=== PATIENT | male | born 1990 | race Caucasian/White ===

== ENCOUNTER 2016-08-13 16:11 | Emergency (ER) | payer OTHER ==
[2016-08-13] MEDS ORDERED: DIPH,PERTUS(ACELL)TETVAC-LF 0.5 ML VIAL IM ONE (17:13)
[2016-08-13] MEDS ORDERED: AMOXIC-POT CLAV 875-125MG 1 EACH TAB PO STA (17:13)
--- NOTE | 2016-08-13 17:19 | ED ---
Animal Bite HPI - General Chief Complaint: Animal Bite Stated Complaint: Dog bite/Hand Time Seen by Provider: 08/13/16 17:06 Source: patient, RN notes reviewed Mode of arrival: ambulatory Limitations: no limitations - History of Present Illness Initial Comments: Patient is a 25-year-old male presents to the emergency room for evaluation of dog bite. Patient states he was playing with his dog and his dog accidentally bit his hand. Patient states his large laceration on the palm of his hand. Patient denies any other injuries. Patient states she's not shortness last tetanus vaccine was. Patient denies any numbness or tingling in his fingers. Patient states he still has full range of motion of his fingers. - Related Data Previous Rx's Medication Instructions Recorded Amoxicillin/Potassium Clav 1 each PO Q12HR #20 tab 08/13/16 [Augmentin 875-125 Tablet] Allergies Allergy/AdvReac Type Severity Reaction Status Date / Time No Known Allergies Allergy Verified 08/13/16 17:37 Review of Systems ROS Statement: Those systems with pertinent positive or pertinent negative responses have been documented in the HPI. ROS Other: All systems not noted in ROS Statement are negative. Past Medical History Past Medical History: No Reported History History of Any Multi-Drug Resistant Organisms: None Reported Past Surgical History: No Surgical Hx Reported Past Psychological History: No Psychological Hx Reported Smoking Status: Current every day smoker Past Alcohol Use History: Occasional Past Drug Use History: Marijuana General Exam - General Exam Comments Initial Comments: Sitting in exam room, no acute distress. Limitations: no limitations General appearance: alert, in no apparent distress Head exam: Present: atraumatic, normocephalic, normal inspection Eye exam: Present: normal appearance ENT exam: Present: normal exam Neck exam: Present: normal inspection Respiratory exam: Absent: respiratory distress Right Hand Wrist exam: Present: full ROM, laceration (3 cm open laceration over the middle of thenar eminence of the right hand from dog bite) Neuro motor exam: Present: wrist extension intact, thumb opposition intact, thumb IP flexion intact, thumb adduction intact, fingers 2-5 abduction intact Vascular: Present: normal capillary refill (Capillary refill less than 2 seconds ), radial pulse (2+), ulnar pulse (2+) Back exam: Present: normal inspection Neurological exam: Present: alert, oriented X3, CN II-XII intact, normal gait Psychiatric exam: Present: normal affect, normal mood Skin exam: Present: warm, dry. Absent: rash Course Vital Signs 08/13/16 08/13/16 16:13 18:22 Temperature 98.1 F 97.9 F Pulse Rate 124 H 100 Respiratory 20 16 Rate Blood Pressure 160/88 160/90 O2 Sat by Pulse 99 97 Oximetry Procedures - Laceration Laceration #1 Consent Obtained: verbal consent Indication: laceration Site: other (right hand) Size (cm): 3 Description: irregular Depth: simple, single layer Anesthetic Used: lidocaine 1% Anesthesia Technique: local infiltration Amount (mls): 5 Pre-repair: wound explored, irrigated extensively Type of Sutures: nylon Size of Sutures: 5-0 Number of Sutures: 2 Technique: horizontal mattress Patient Tolerated Procedure: well, no complications Medical Decision Making - Medical Decision Making Patient is a 25-year-old male presents to the emergency room for evaluation of dog bite over right hand. Patient had a 3 cm open laceration from dog bite. Wound was thoroughly irrigated with 500 mL of sterile water. Laceration was loosely closed with 2 horizontal mattress sutures. Thoroughly explained to patient the increased risk of infection. Patient will be started on Augmentin. Patient updated on tetanus vaccine. Advised patient to followup with primary care provider for reevaluation of the wound in 24 hours. Advised patient to return to the emergency room for any signs of infection. Patient states he understands everything that was discussed with him. Case discussed with Dr. Kaur. Disposition Clinical Impression: Dog bite Disposition: HOME SELF-CARE Condition: Good Instructions: Animal Bite (ED), Care For Your Stitches (ED) Additional Instructions: Keep suture area clean and dry. Please follow up with primary care provider in 24-48 hours for reevaluation of wound. Please return for redness, swelling or pus drainage. Take antibiotics as directed. If any new symptom arises or symptoms worsen, return to ER as soon as possible. Prescriptions: Amoxicillin/Potassium Clav [Augmentin 875-125 Tablet] 1 each PO Q12HR #20 tab Referrals: Nathaly Vazquez MD [REFERRING] - 1-2 days Time of Disposition: 18:12
[2016-08-13 18:24] VITALS: BP 160/90; PULSE 100; RESP 16; TEMP 97.9
== END 2016-08-13 18:24 | disposition home or self-care (01) ==
LOC: EC 16:11
DX: S61.451A Open bite of right hand, initial encounter (principal); Z23 Encounter for immunization; F17.200 Nicotine dependence, unspecified, uncomplicated; W54.0XXA Bitten by dog, initial encounter; Y92.009 Unspecified place in unspecified non-institutional (private) residence as the place of occurrence of the external cause
CPT/HCPCS: 12002; 90471; 90715; 99283

== ENCOUNTER 2019-10-18 07:06 | Emergency (ER) | payer OTHER ==
[2019-10-18 07:14] VITALS: BP 162/91; PULSE 100; RESP 18; TEMP 97.5
--- NOTE | 2019-10-18 07:25 | ED ---
Upper Extremity HPI - General Chief Complaint: Extremity Injury, Upper Stated Complaint: LT hand injury Time Seen by Provider: 10/18/19 07:15 Source: patient, RN notes reviewed Mode of arrival: ambulatory Limitations: no limitations - History of Present Illness Initial Comments: 28-year-old male presents emergency from chief complaint left hand pain and swelling. 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 His last tetanus was one year ago. Patient states pain and swelling has increased. Patient states her some redness. He has no pain in his forearm, axilla. Patient denies any fevers or chills. Patient states that he did wash it off those hands are very dirty at this time. - Related Data Previous Rx's Medication Instructions Recorded Amoxicillin/Potassium Clav 1 each PO Q12HR #20 tab 08/13/16 [Augmentin 875-125 Tablet] Clindamycin HCl 300 mg PO Q6HR #40 cap 10/18/19 Ibuprofen [Motrin] 600 mg PO Q8HR PRN #20 tab 10/18/19 Allergies Allergy/AdvReac Type Severity Reaction Status Date / Time No Known Allergies Allergy Verified 10/18/19 07:14 Review of Systems ROS Statement: Those systems with pertinent positive or pertinent negative responses have been documented in the HPI. ROS Other: All systems not noted in ROS Statement are negative. Past Medical History Past Medical History: No Reported History History of Any Multi-Drug Resistant Organisms: None Reported Past Surgical History: No Surgical Hx Reported Past Psychological History: No Psychological Hx Reported Smoking Status: Current every day smoker Past Alcohol Use History: Occasional Past Drug Use History: Marijuana, Prescription Drug Abuse General Exam Limitations: no limitations General appearance: alert, in no apparent distress Head exam: Present: atraumatic, normocephalic, normal inspection Eye exam: Present: normal appearance, PERRL, EOMI. Absent: scleral icterus, conjunctival injection, periorbital swelling Respiratory exam: Present: normal lung sounds bilaterally. Absent: respiratory distress, wheezes, rales, rhonchi, stridor Cardiovascular Exam: Present: regular rate, normal rhythm, normal heart sounds. Absent: systolic murmur, diastolic murmur, rubs, gallop, clicks Extremities exam: Present: other (Left hand there is a puncture wound noted to the palmar aspect and erythema, swelling on the dorsal aspect patient has full range of motion neurovascular intact Refill less than 2 seconds there is no erythema spreads vastly and no epitrochlear nodes or) Skin exam: Present: warm, dry, intact Course Vital Signs 10/18/19 07:12 Temperature 97.5 F L Pulse Rate 100 Respiratory 18 Rate Blood Pressure 162/91 O2 Sat by Pulse 99 Oximetry Medical Decision Making - Medical Decision Making 28-year-old male presents emergency department for left hand swelling, and in jury. There is no foreign bodies noted fracture. Patient has soft tissue infection related to puncture wound. Patient was given strict return parameters. Patient understands that he is return for any worsening or change symptoms. Patient was started on clindamycin at this time he is to thoroughly clean his hands. Disposition Clinical Impression: Cellulitis of left hand, Puncture wound of left hand Disposition: HOME SELF-CARE Condition: Stable Instructions (If sedation given, give patient instructions): Cellulitis (ED) Additional Instructions: Please return to the Emergency Department if symptoms worsen or any other concerns. Prescriptions: Clindamycin HCl 300 mg PO Q6HR #40 cap Ibuprofen [Motrin] 600 mg PO Q8HR PRN #20 tab PRN Reason: Pain Is patient prescribed a controlled substance at d/c from ED?: No Referrals: None,Stated [Primary Care Provider] - 1-2 days Time of Disposition: 07:43
--- NOTE | 2019-10-18 07:37 | XR ---
EXAMINATION TYPE: XR hand complete LT , 3 VIEWS DATE OF EXAM ORDERED: 10/18/2019 HISTORY: swelling, pain. COMPARISON: None. FINDINGS: There is swelling over the dorsum of the hand. No fracture, dislocation or other acute oss eous lesion is seen. IMPRESSION: NO ACUTE OSSEOUS LESION.
== END 2019-10-18 07:50 | disposition home or self-care (01) ==
LOC: EC 07:06
DX: S61.432A Puncture wound without foreign body of left hand, initial encounter (principal); L03.114 Cellulitis of left upper limb; F17.200 Nicotine dependence, unspecified, uncomplicated; W27.0XXA Contact with workbench tool, initial encounter; Y93.89 Activity, other specified; Y92.009 Unspecified place in unspecified non-institutional (private) residence as the place of occurrence of the external cause
CPT/HCPCS: 99283

== ENCOUNTER 2023-06-11 15:21 | Emergency (ER) | payer OTHER ==
[2023-06-11] MEDS ORDERED: FLUORESCEIN STRIPS 1 MG STRIP LEFT EYE ONE (16:18)
[2023-06-11] MEDS ORDERED: PROPARACAINE 0.5% OPHTH DROPS 15 ML BTL LEFT EYE STA (16:18)
[2023-06-11] MEDS ORDERED: ERYTHROMYCIN 5 MG/GM OPHTH OINT 1 GM TUBE LEFT EYE STA (17:03)
[2023-06-11] MEDS ORDERED: DIPH,PERTUS(ACELL)TETVAC-LF 0.5 ML VIAL IM ONE (17:03)
--- NOTE | 2023-06-11 17:08 | ED ---
General Adult HPI - General Chief complaint: Eye Problems Stated complaint: Left Eye irritation Time Seen by Provider: 06/11/23 16:27 Source: patient Mode of arrival: ambulatory Limitations: no limitations - History of Present Illness Initial comments: Dictation was produced using [employer] dictation software. please excuse any grammatical, word or spelling errors. Chief Complaint: 32-year-old male with left eye foreign body History of Present Illness: 32-year-old male with left eye foreign body. Patient states that 48 hours ago he was doing yard work when he felt something go into his eye. 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 Does not recall any pieces of metal in his eye then. Patient states that today his symptoms of left eye foreign body increasingly worsened. He states that he has watery eye, conjunctivitis along with photophobia. Patient unsure when his last tetanus was. The ROS documented in this emergency department record has been reviewed and confirmed by me. Those systems with pertinent positive or negative responses have been documented in the HPI. All other systems are other negative and/or noncontributory. - Related Data Previous Rx's Medication Instructions Recorded Amoxicillin/Potassium Clav 1 each PO Q12HR #20 tab 08/13/16 [Augmentin 875-125 Tablet] Ibuprofen [Motrin] 600 mg PO Q8HR PRN #20 tab 10/18/19 clindamycin HCL [Clindamycin HCl] 300 mg PO Q6HR #40 cap 10/18/19 Allergies Allergy/AdvReac Type Severity Reaction Status Date / Time No Known Allergies Allergy Verified 06/11/23 15:30 Review of Systems ROS Statement: Those systems with pertinent positive or pertinent negative responses have been documented in the HPI. ROS Other: All systems not noted in ROS Statement are negative. Past Medical History Past Medical History: No Reported History History of Any Multi-Drug Resistant Organisms: None Reported Past Surgical History: No Surgical Hx Reported Past Psychological History: No Psychological Hx Reported Smoking Status: Current every day smoker Past Alcohol Use History: Occasional Past Drug Use History: Marijuana, Prescription Drug Abuse General Exam - General Exam Comments Initial Comments: General: Well-appearing, nontoxic, no acute distress. Head: Normocephalic, atraumatic Eyes: Left eye conjunctivitis, small pinpoint what appears to be metal or stone right below the pupil, pupils round reactive to light. Sclera is injected ENT: Airway patent Chest: Nonlabored breathing Skin: No visual rash, normal skin tone Neuro: Alert and oriented 3 Musculoskeletal: No gross abnormalities Limitations: no limitations Course Vital Signs 06/11/23 15:29 Temperature 98.4 F Pulse Rate 89 Respiratory 20 Rate Blood Pressure 159/90 O2 Sat by Pulse 97 Oximetry - Reevaluation(s) Reevaluation #1: 06/11/23 17:07 a Foreign body removal was attempted using 18-gauge needl after proparacaine was used to anesthetize the eye. Some pieces were removed however bulk of foreign body still remained. [place] brush em was attempted with difficulty removing foreign body. Suspect that it is deeply embedded given that patient presented 48 hours after symptoms onset. Medical Decision Making - Medical Decision Making Was pt. sent in by a medical professional or institution ([facility], FLANGING ROLL OPERATOR, urgent care, hospital, or assisted...) When possible be specific @ -No Did you speak to anyone other than the patient for history (EMS, parent, family, police, friend...)? What history was obtained from this source @ -No Did you review nursing and triage notes (agree or disagree)? Why? @ -I reviewed and agree with nursing and triage notes Were old charts reviewed (outside hosp., previous admission, EMS record, old EKG, old radiological studies, urgent care reports/EKG's, assisted records)? Report findings @ -No old charts were reviewed Differential Diagnosis (chest pain, altered mental status, abdominal pain women, abdominal pain men, vaginal bleeding, musculoskeletal, weakness, fever, dyspnea, syncope, headache, dizziness, GI bleed, back pain, seizure, CVA, palpatations, mental health)? @ -Not applicable EKG interpreted by me (3pts min.). @ -None done X-rays interpreted by me (1pt min.). @ -None done CT interpreted by me (1pt min.). @ -None done U/S interpreted by me (1pt. min.). @ -None done What testing was considered but not performed or refused? (CT, X-rays, U/S, labs)? Why? @ -None What meds were considered but not given or refused? Why? @ -None Did you discuss the management of the patient with other professionals (professionals i.e. Dr., PA, FLANGING ROLL OPERATOR, lab, RT, psych nurse, social work msw, poultry cutter, teacher, police or patrol park officer, case packer and sealer)? Give summary @ -Case discussed with Dr. Valencia bridge repair crew person optho who instructs the patient to call his office first in the morning at 7:30 AM to be seen tomorrow. Was smoking cessation discussed for >3mins.? @ -No Was critical care preformed (if so, how long)? @ -No Were there social determinants of health that impacted care today? How? (Homelessness, low income, unemployed, alcoholism, drug addiction, transportation, low edu. Level, literacy, decrease access to med. care, fpc, rehab)? @ -No Was there de-escalation of care discussed even if they declined (Discuss DNR or withdrawal of care, Hospice)? DNR status @ -No What co-morbidities impacted this encounter? (DM, HTN, Smoking, COPD, CAD, Cancer, CVA, ARF, Chemo, Hep., AIDS, mental health diagnosis, sleep apnea, morbid obesity)? @ -None Was patient admitted / discharged? Hospital course, mention meds given and route, prescriptions, significant lab abnormalities, going to OR and other pertinent info. @ -32-year-old male with left eye foreign body. Vital signs stable. Attempt was r made to remove foreign body. Some of the material was removed however large amount of it remained. Undiagnosed new problem with uncertain prognosis? @ -No Drug Therapy requiring intensive monitoring for toxicity (Heparin, Nitro, Ins ulin, Cardizem)? @ -No Were any procedures done? @ -No Diagnosis/symptom? Acute, or Chronic, or Acute on Chronic? Uncomplicated (without systemic symptoms) or Complicated (systemic symptoms)? @ -Left eye foreign body Side effects of treatment? @ -No Exacerbation, Progression, or Severe Exacerbation? @ -No Poses a threat to life or bodily function? How? (Chest pain, [place], [place], pneumonia, PE, COPD, DKA, ARF, appy, cholecystitis, CVA, Diverticulitis, Homicidal, Suicidal, threat to staff... and all critical care pts) @ -yes Disposition Clinical Impression: Foreign body of left eye Disposition: HOME SELF-CARE Condition: Fair Instructions (If sedation given, give patient instructions): Eye Foreign Body (ED) Additional Instructions: Apply erythromycin ointment to your left eye before bed and immediately upon waking or every 4-[address] Valencia's office at 7:30 in the morning to schedule an appointment for tomorrow. Make sure to tell the office staff that you are seen in the ER for a foreign body in your left eye. Is patient prescribed a controlled substance at d/c from ED?: No Referrals: Derrell Valencia MD [STAFF PHYSICIAN] - 1-2 days Time of Disposition: 17:34
[2023-06-11 18:17] VITALS: BP 158/76; PULSE 75; RESP 18; TEMP 98.2
== END 2023-06-11 18:15 | disposition home or self-care (01) ==
LOC: EC 15:21
DX: T15.92XA Foreign body on external eye, part unspecified, left eye, initial encounter (principal); F17.200 Nicotine dependence, unspecified, uncomplicated; F12.90 Cannabis use, unspecified, uncomplicated; Z23 Encounter for immunization
CPT/HCPCS: 90471; 90715; 99283